=== PATIENT | female | born 1985 | race Two or more races ===

== ENCOUNTER 2023-11-15 03:22 | Emergency (ER) | payer SELFPAY ==
[~2023-11-15] VITALS: Ht 157.5 cm; Wt 78.0 kg
[2023-11-15 03:27] VITALS: BP 142/78; PULSE 110; RESP 14; TEMP 98.9; O2SAT 97
[2023-11-15 03:56] LABS: Rapid Strep A Screen-Throat Positive
[2023-11-15 04:18] LABS: Rapid Influenza A Negative (Negative); Rapid Influenza B Negative (Negative)
[2023-11-15 04:21] LABS: COVID19 ANTIGEN SOFIA FIA POSITIVE (NEGATIVE)
[2023-11-15] MEDS ORDERED: AUG875T PO (04:30)
[2023-11-15] MEDS ORDERED: IBUP-1456 PO (04:30)
[2023-11-15] MEDS: DexAMETHasone SOD PHOS 10MG/1ML VIAL INJ IM ONE (04:30)
== END 2023-11-15 05:03 | disposition home or self-care (01) ==
LOC: ER 03:22
DX: U07.1 COVID-19 (principal); J02.0 Streptococcal pharyngitis
CPT/HCPCS: 36415; 87426; 87804; 87880; 96372; 99283; J1100